=== PATIENT | male | born 1980 | race Caucasian/White ===

== ENCOUNTER 2019-11-23 16:23 | Emergency (ER) | payer OTHER ==
[~2019-11-23] VITALS: Ht 182.9 cm; Wt 92.5 kg
[~2019-11-23 16:23] MED LIST: NOHOMEMEDICATIONS
[2019-11-23] MEDS ORDERED: KEFLEX500 M1 PO (18:24)
[2019-11-23] MEDS ORDERED: NAPROSYN500 MG PO (18:24)
[2019-11-23 18:58] VITALS: BP 134/87
== END 2019-11-23 18:58 | disposition home or self-care (01) ==
LOC: M.ERS 16:23
DX: I80.02 Phlebitis and thrombophlebitis of superficial vessels of left lower extremity (principal); L03.116 Cellulitis of left lower limb; I89.1 Lymphangitis; Z88.0 Allergy status to penicillin